=== PATIENT | female | born 1965 | race Caucasian/White ===

== ENCOUNTER 2020-05-25 10:28 | Emergency (ER) | payer SELFPAY ==
[~2020-05-25] VITALS: Ht 162.6 cm; Wt 95.0 kg
[2020-05-25 10:38] VITALS: BP 155/76
[2020-05-25] MEDS ORDERED: HYDROCODONE/ACETAMINOPHEN 5/325MG TABLET PO ONE (11:30)
== END 2020-05-25 12:04 | disposition home or self-care (01) ==
LOC: ER 11:06
DX: S52.092A Other fracture of upper end of left ulna, initial encounter for closed fracture (principal); W01.0XXA Fall on same level from slipping, tripping and stumbling without subsequent striking against object, initial encounter; Y93.9 Activity, unspecified; Y92.9 Unspecified place or not applicable
CPT/HCPCS: 29105; 73070; 99283